=== PATIENT | male | born 2005 | race Caucasian/White ===

== ENCOUNTER 2024-08-25 17:00 | Emergency (ER) | payer SELFPAY ==
[~2024-08-25] VITALS: Ht 154.9 cm; Wt 73.0 kg
[2024-08-25 17:06] VITALS: TEMP 97.9
[2024-08-25 18:03] LABS: BASOPHILS # (AUTO) 0.1 X10'3 (0-0.2); BASOPHILS % (AUTO) 0.8 % (0-1); EOSINOPHILS # (AUTO) 0.1 X10'3 (0-0.9); EOSINOPHILS % (AUTO) 0.6 % (0-6); HEMATOCRIT 47.2 % (42.0-52.0); HEMOGLOBIN 16.3 g/dl (14.0-17.9); LYMPHOCYTES # (AUTO) 2.5 X10'3 (1.1-4.8); LYMPHOCYTES % (AUTO) 29.9 % (21-51); MEAN CORPUSCULAR HEMOGLOBIN 30.4 PG (27.0-31.0); MEAN CORPUSCULAR HGB CONC 34.5 g/dL (33.0-36.5); MEAN PLATELET VOLUME 9.3 FL (7.4-10.4); MONOCYTES # (AUTO) 0.9 X10'3 (0-0.9); MONOCYTES % (AUTO) 10.5 % (2-12); NEUTROPHILS # (AUTO) 4.9 X10'3 (1.8-7.7); NEUTROPHILS % (AUTO) 58.2 % (42-75); PLATELET COUNT 292 X10'3 (140-440); RED BLOOD COUNT 5.36 X10'6 (4.70-6.10); RED CELL DISTRIBUTION WIDTH 12.5 % (11.5-14.5); WHITE BLOOD COUNT 8.4 X10'3 (4.5-11.0)
[2024-08-25 18:16] LABS: ALANINE AMINOTRANSFERASE 41 U/L (12-78); ALBUMIN 4.4 G/DL (3.4-5.0); ALBUMIN/GLOBULIN RATIO 1.3 (1.1-1.5); ALKALINE PHOSPHATASE 72 IU/L (20-180); ANION GAP 7 (8-16); ASPARTATE AMINO TRANSFERASE 36 U/L (10-37); BILIRUBIN,TOTAL 0.8 MG/DL (0.1-1.0); BLOOD UREA NITROGEN 6 MG/DL (7-18); BUN/CREATININE RATIO 6.2 (10.0-20.0); CALCIUM 8.9 MG/DL (8.5-10.1); CHLORIDE 104 MMOL/L (99-107); CREATININE 0.97 MG/DL (0.60-1.10); GLUCOSE 85 MG/DL (70-104); LIPASE 29 U/L (16-77); POTASSIUM 3.9 MMOL/L (3.5-5.1); SODIUM 139 MMOL/L (135-145); TOTAL CARBON DIOXIDE 27.8 MMOL/L (24-32); TOTAL PROTEIN 7.8 G/DL (6.4-8.2); eCRCL 90 ML/MIN; eGFR > 90 ML/MIN
[2024-08-25 20:04] LABS: BILIRUBIN,URINE NEGATIVE (Neg); CLARITY,URINE CLEAR (Clear); COLOR,URINE YELLOW (Yellow); GLUCOSE, URINE NEGATIVE (Neg); KETONES,URINE NEGATIVE (Neg); LEUKOCYTE ESTERASE ,URINE SMALL (Neg); NITRITES, URINE NEGATIVE (Neg); OCCULT BLOOD,URINE NEGATIVE (Neg); PROTEIN,URINE NEGATIVE (Neg); URINE HCG NEGATIVE; UROBILINOGEN,URINE 0.2 E.U/dL (0.2-1.0)
[2024-08-25 20:11] LABS: UA COLLECTION TYPE CLN CATCH MIDSTREAM
[2024-08-25 20:12] LABS: RBC,URINE 0-2 /HPF (0-2); WBC,URINE 0-4 /HPF (0-4)
[2024-08-25 20:13] LABS: BACTERIA,URINE FEW /HPF (Neg); SQUAMOUS EPITHELIAL CELL,UR FEW /LPF (FEW)
--- NOTE | 2024-08-25 21:28 | Physician Documentation ---
History of Present Illness ~ Chief Complaint: Bloody Stools Stated Complaint: ABDOMINAL PAIN Time Seen by MD: 21:27 OK to notify your PCP?: No Source: patient, RN/MD, RN notes reviewed, old records Mode of Arrival: POV Exam Limitations: no limitations HPI 18 year old transgender male on testosterone, with no significant past medical history or surgical history, presents complaining of blood per rectum after bowel movements for the last two weeks. Symptoms occur approximately every other day with a bowel movement. He denies any rectal pain, constipation, fever, or diarrhea. He does have some bilateral lower abdominal pain that is mild. Medication Reconciliation Allergies: Coded Allergies: No Known Allergies (Unverified , 08/25/24) Past Medical History Past Medical History: No Pertinent History Past Surgical History: no surgical history Smoking Status: Current every day smoker Drug Use: none Lives In: Home Occupation: employed Review of Systems All Other Systems at this time: Reviewed and Negative ROS As stated above in the HPI, otherwise all systems are reviewed and negative. Physical Exam Vital Signs: RN Vital Signs have been reviewed: Yes, Temperature: 97.9, Heart Rate: 75, Respiratory Rate: 16, BP: 122/72, Pulse Oximetry: 98, Weight: 73.000 Oxygen Flow Rate: 0 Pulse Oximetry Reflects: adequate oxygenation Physical Exam General: The patient is well developed, well nourished, nontoxic appearing and is in no acute distress. Skin: [place], warm and dry with no rashes. HEENT: Head was normocephalic and atraumatic. Chest: Clear to auscultation bilaterally without wheezes, rales or rhonchi. No accessory muscle use. No dullness to percussion. Heart: Rate regular and rhythmic. S1, S2. No murmurs. Palpation of the chest wall was normal. No rubs or thrills. Abdomen: Soft, nontender and nondistended. Positive bowel sounds. No guarding or rebound. Rectal: (with female automated manufacturing instructor present) No palpable internal and external hemorrhoids. Scaring over the 6 o'clock position. No blood. Extremities: No cyanosis, clubbing or edema. The patient moves all extremities. Pulses were equal and symmetric. Neurologic: Motor and sensation grossly intact. Cranial nerves II-XII grossly intact. A & O x4. Psychologic: Normal mood and affect. No agitation. Progress Results/Orders Reviewed/noted all lab results: Yes Results/Orders Vital Signs 08/25/24 08/25/24 08/25/24 08/25/24 17:06 19:43 19:43 22:01 Temp 97.9 Pulse 82 75 68 Resp 16 16 16 B/P (MAP) 123/76 122/72 (89) 122/72 Pulse Ox 99 98 99 O2 Flow Rate 0 Laboratory Tests Test 08/25/24 17:40 08/25/24 19:30 White Blood Count 8.4 Red Blood Count 5.36 Hemoglobin 16.3 Hematocrit 47.2 Mean Corpuscular Volume 88.0 Mean Corpuscular Hemoglobin 30.4 Mean Corpuscular Hemoglobin Concent 34.5 Red Cell Distribution Width 12.5 Platelet Count 292 Mean Platelet Volume 9.3 Neutrophils (%) (Auto) 58.2 Lymphocytes (%) (Auto) 29.9 Monocytes (%) (Auto) 10.5 Eosinophils (%) (Auto) 0.6 Basophils (%) (Auto) 0.8 Neutrophils # (Auto) 4.9 Lymphocytes # (Auto) 2.5 Monocytes # (Auto) 0.9 Eosinophils # (Auto) 0.1 Basophils # (Auto) 0.1 CBC Comment Sodium Level 139 Potassium Level 3.9 Chloride Level 104 Carbon Dioxide Level 27.8 Anion Gap 7 L Blood Urea Nitrogen 6 L Creatinine 0.97 Estimated GFR/1.73 m2 > 90 BUN/Creatinine Ratio 6.2 L Glucose Level 85 Calcium Level 8.9 Total Bilirubin 0.8 Aspartate Amino Transf (AST/SGOT) 36 Alanine Aminotransferase (ALT/SGPT) 41 Alkaline Phosphatase 72 Total Protein 7.8 Albumin 4.4 Globulin 3.4 Albumin/Globulin Ratio 1.3 Lipase 29 Chemistry Comments Urine Specimen Description Cln catch midstream Urine Color Yellow Urine Clarity Clear Urine pH 6.0 Urine Specific [place] 1.010 Urine Protein Negative Urine Glucose (UA) Negative Urine Ketones Negative Urine Occult Blood Negative Urine Nitrite Negative Urine Bilirubin Negative Urine Urobilinogen 0.2 Urine Leukocyte Esterase Small H Urine RBC 0-2 Urine WBC 0-4 Urine Squamous Epithelial Cells Few Urine Bacteria Few Urine Culture Indicated Indicated Volume Urine Centrifuged 10 ml Urine HCG, Qualitative Negative Urine Comment Microbiology Date/Time Source Procedure Growth Status 08/25/24 20:18 Urine Clean Catch Midstream Urine Culture - Preliminary Culture received. Resulted Medical Decision Making Additional info obtained from: old records (no prior visits) Departure Time of Disposition: 21:51 Disposition: 01 HOME / SELF CARE / HOMELESS Impression: Primary Impression: Lower GI bleeding Discharge Instructions: Bloody Stools Additional Instructions: Follow up with Dr. Wood's and Dr. Petit' offices. Their phone numbers are listed in this packet. Return to the ER for worsening bleeding, weakness, worsening abdominal pain, fever, vomiting, or any other concerns. Departure Forms: Excuse form Work or School Excused From: Work Excuse beginning now through the following date: August 26, 2024 Referrals: DORIS PETIT MD, LEO E MD Education Educated: Patient, Family Educated regarding: diagnosis, treatment, need for follow up Signature Scribe Signature: Scribed for Ean Somers MD by Julian Perry . 08/25/24 21:40 Attestation: The note accurately reflects work and decisions made by me.Ean Somers MD 08/25/24 21:28 EAN SOMERS MD August 25, 2024 21:28 JULIAN CÁRDENAS August 25, 2024 21:45
[2024-08-25 22:01] VITALS: BP 122/72; PULSE 68; RESP 16; O2SAT 99
== END 2024-08-25 22:03 | disposition home or self-care (01) ==
LOC: ER 17:01
DX: K92.2 Gastrointestinal hemorrhage, unspecified (principal); F17.200 Nicotine dependence, unspecified, uncomplicated
CPT/HCPCS: 36415; 80053; 81001; 81025; 83690; 85025; 87088; 99283